=== PATIENT | male | born 1985 | race Caucasian/White ===

== ENCOUNTER 2024-02-03 15:23 | Outpatient (CLI) | payer BC, SELFPAY ==
[2024-02-03 16:34] LABS: SARS-CoV-2 RNA PCR Positive (Negative)
[2024-02-03 16:38] LABS: Influenza A QL RT-PCR Negative (Negative); Influenza B QL RT-PCR Negative (Negative); RSV RNA, RT-PCR Negative (Negative)
== END 2024-02-03 15:24 | disposition home or self-care (01) ==
PROVIDERS: PCP Internal Medicine; Visit Provider Internal Medicine
DX: U07.1 COVID-19 (principal); R05.9 Cough, unspecified
CPT/HCPCS: 87637